=== PATIENT | female | born 1950 | race Caucasian/White ===

== ENCOUNTER 2017-10-12 06:56 | Day surgery (SDC) | payer OTHER ==
[2017-10-12] MEDS ORDERED: BENZOCAINE UNIT DOSE SPRAY HURRICAINE MM ONE (07:01)
[2017-10-12] MEDS ORDERED: ATROPINE SULFATE 1 MG/10 ML SYR IVP ONE (07:01)
[2017-10-12] MEDS ORDERED: NS 500 ML IV ONE (07:01)
--- NOTE | 2017-10-12 07:16 | CPEKG ---
Heart Rate: 121 RR Interval: 496 P-R Interval: 108 QRSD Interval: 126 QT Interval: 344 QTC Interval: 488 P Laurel: 80 QRS Laurel: -44 T Wave Laurel: -25 EKG Severity - ABNORMAL ECG - EKG Impression: SINUS TACHYCARDIA VS ATRIAL TACHYCARDIA EKG Impression: NONSPECIFIC IVCD WITH LAD EKG Impression: LEFT VENTRICULAR HYPERTROPHY Electronically Signed By: Asad Kim 12-Oct-2017 16:04:07
[2017-10-12 07:39] LABS: INR 1.67 (0.83-1.16); PROTIME(PATIENT) 19.8 SEC (12.0-15.0)
[2017-10-12] MEDS ORDERED: PROPOFOL 200 MG/20 ML VIAL ONE (08:30)
[2017-10-12] MEDS ORDERED: MIDAZOLAM 2 MG/2 ML VIAL ONE (08:31)
--- NOTE | 2017-10-12 08:37 | PDHPUP ---
History & Physical Update H&P update statement: This history and physical update is based on an assessment of the patient which was completed after admission or registration (within 24 hours), but prior to the surgery/procedure. H&P update: H&P reviewed & patient examined, no change in patient's condition since H&P completed
[2017-10-12] MEDS ORDERED: ADENOSINE 6 MG/2 ML VIAL ONE (08:41)
[2017-10-12] MEDS ORDERED: fentaNYL 100 MCG/2 ML INJ IVP PRN (08:59)
[2017-10-12] MEDS ORDERED: NALOXONE HCL 0.4 MG/ML INJ IVP PRN (08:59)
[2017-10-12] MEDS ORDERED: LR 500 ML IV PRN (08:59)
[2017-10-12] MEDS ORDERED: ALBUTEROL 3 ML DEYVIAL IH PRN (08:59)
[2017-10-12] MEDS ORDERED: ONDANSETRON 4 MG/2 ML VIAL IVP PRN (08:59)
--- NOTE | 2017-10-12 08:59 | PDANEPAE ---
ANE Past Medical History - Pulmonary History Hx Sleep Apnea: No - Endocrine History Hx Diabetes: No - Chronic Pain History Chronic Pain: No ANE Review of Systems Review of Systems: ANE Patient History - Allergies Allergies/Adverse Reactions: No Known Allergies Allergy (Unverified 09/20/14 14:11) - Home Medications Home Medications: Diltiazem 60 mg PO ONCE PRN 10/12/17 [Last Taken 10/10/17 21:30] Eliquis 5 mg PO BID 10/12/17 [Last Taken 10/12/17 05:00] Propafenone HCl 300 mg PO DAILY 10/12/17 [Last Taken 10/12/17 05:00] - Smoking Hx Smoking Status: Never smoked ANE Labs/Vital Signs - Labs Result Diagrams: 10/12/17 07:20 - Vital Signs Height: 170 cm Weight: 80.5 kg ANE Physical Exam - Airway Neck exam: FROM Mallampati Score: Class 2 Mouth exam: normal dental/mouth exam - Pulmonary Pulmonary: no respiratory distress, no rales or rhonchi, clear to auscultation - ASA Status ASA Status: III ANE Anesthesia Plan Anesthesia Plan: GA w LMA
[2017-10-12] MEDS ORDERED: ADENOSINE 6 MG/2 ML VIAL IVP ONE (09:00)
--- NOTE | 2017-10-12 09:00 | POSTANESTH ---
Post Anesthetic Evaluation Cardiovascular Status: Normal, Stable Respiratory Status: Normal, Stable, Similar to Pre-op Cond. Level of Consciousness/Mental Status: Can Participate in Eval Pain Control: Adequate, Prn Tx Ordered Nausea/Vomiting Control: Adequate, Prn Tx Ordered Complications Possibly Related to Anesthesia: None Noted
--- NOTE | 2017-10-12 09:03 | PDTEE1 ---
AUBREY Cardioversion Procedure Indications: other (Atrial flutter) Anticoagulation: eliquis Procedural Details: Pads were placed in anterior-posterior position. Patient was administered 12 mg of adenosine. Patient had significant AV block with clear atrial flutter. There was recovery. She was administered a single shock at 70 w seconds synchronized with faith of sinus rhythm. Synchronized cardioversion attempt #1: other (70J) Results: normal sinus rhythm Conclusions: successful cardioversion (Patient be referred to Dr. Spencer for consideration of atrial flutter ablation.) Patient Problems: Problems Problem Status Onset Arrhythmia Acute Atrial flutter Acute
--- NOTE | 2017-10-12 09:06 | CPEKG ---
Heart Rate: 76 RR Interval: 789 P-R Interval: 204 QRSD Interval: 104 QT Interval: 416 QTC Interval: 468 P [place]: 62 QRS [place]: -12 T Wave [place]: 33 EKG Severity - ABNORMAL ECG - EKG Impression: SINUS RHYTHM EKG Impression: PROBABLE LEFT VENTRICULAR HYPERTROPHY Electronically Signed By: Asad Kim 12-Oct-2017 15:55:37
[2017-10-12] MEDS ORDERED: LIDOCAINE/PRILOCAINE 1 EACH CRTUBE TP PRN (09:59)
[2017-10-12] MEDS ORDERED: LIDOCAINE/PRILOCAINE 1 EACH CRTUBE TP ONE (10:01)
== END 2017-10-12 10:27 | disposition home or self-care (01) ==
LOC: FCATH 06:56
PROVIDERS: ATTEND Internal Medicine Interventional Cardiology
PROC: 5A2204Z Restoration of Cardiac Rhythm, Single (ICD-10-PCS; principal; 2017-10-12)
DX: I48.91 Unspecified atrial fibrillation (principal); I48.3 Typical atrial flutter
CPT/HCPCS: J0153; J2250; J2704

== ENCOUNTER 2017-10-16 19:51 | Emergency (ER) | payer OTHER ==
[2017-10-16] MEDS ORDERED: NS 500 ML IV ONE (20:06)
--- NOTE | 2017-10-16 20:07 | EDPHY ---
H & P Time Seen by Provider: 10/16/17 20:06 HPI/ROS: CHIEF COMPLAINT: Rapid heart rate HISTORY OF PRESENT ILLNESS: The patient is an anticoagulated (Xarelto) 67 y/o female with a history of a flutter, a-fib, s/p cardiac ablation complaining of a rapid heart rate, onset 19 :20, 1 hour ago. On Wednesday, 4 days ago, she had a cardioversion preformed by Dr. Henriquez. She took 60mg PO Diltiazem, just prior to arrival but continues to have a rapid HR. No shortness of breath, dizziness, or chest pain. Followed by Dr. Henriquez and Dr. Spencer, rn clinician. REVIEW OF SYSTEMS: Aside from elements discussed in the HPI, a comprehensive 10-point review of systems was reviewed and is negative. Past Medical/Surgical History: A-flutter, a-fib, ablation, hypertension, hypercholesteremia, depression Social History: at bedside, lives in [place], retired Smoking Status: Never smoked Physical Exam: General Appearance: Alert, pleasant Eyes: Pupils equal and round, no conjunctival pallor or injection ENT, Mouth: Mucous membranes moist Neck: Normal inspection Respiratory: Lungs are clear to auscultation Cardiovascular: Regular tachycardia Gastrointestinal: Abdomen is soft and non-tender Neurological: A&O, nonfocal Skin: Warm and dry, no rash Extremities: Nontender, no pedal edema Psychiatric: Mood and affect normal Constitutional: Initial Vital Signs Temperature (C) 37.0 C 10/16/17 20:00 Heart Rate 143 H 10/16/17 20:00 Respiratory Rate 20 10/16/17 20:00 Blood Pressure 158/119 H 10/16/17 20:00 O2 Sat (%) 98 10/16/17 20:00 O2 Delivery Mode Room Air Allergies/Adverse Reactions: No Known Allergies Allergy (Unverified 10/16/17 20:00) Home Medications: Medication Instructions Recorded Apixaban [Eliquis] 5 mg PO BID 10/12/17 Diltiazem [Cardizem 60 MG (*)] 60 mg PO DAILY PRN 10/12/17 Medical Decision Making - Diagnostics EKG Interpretation: EKG interpreted by me reveals atrial flutter, ventricular rate 164, borderline left axis deviation, normal intervals, ST and T segments normal. Interpretation : abnormal EKG Imaging: I viewed and interpreted images myself ED Course/Re-evaluation: This patient presents with atrial flutter with RVR. She is hemodynamically stable. 2026: Consulted with Dr. Cintron, rn clinician, regarding this patient. He suggests diltiazem vs. cardioversion. 2029: Reassessed patient and discussed plan for cardioversion vs. diltiazem. She declines cardioversion and is requesting diltiazem. Patient will need to be admitted if she does not convert; she is comfortable with this plan. Diltiazem 10 mg IV ordered. 2109: Dr. Heck was consulted for admission. 2129: converted to NSR, will d/c home. Repeat EKG reveals normal sinus rhythm, without ischemic changes. No IV diltiazem given during her Emergency Department visit because she converted to normal sinus rhythm prior to giving IV diltiazem. Differential Diagnosis: Differential diagnosis includes though it is not limited to pneumonia, pneumothorax, pulmonary embolism, aortic dissection, pericarditis, acute coronary syndrome. - Data Points Laboratory Results: Laboratory Results 10/16/17 20:15 10/16/17 20:15 Medications Given: Discontinued Medications Diltiazem HCl (Cardizem 25 Mg/5 Ml Vial) 10 mg IVP EDNOW ONE Stop: 10/16/17 20:15 Last Admin: 10/17/17 01:15 Dose: Not Given Diltiazem HCl (Cardizem) 10 mg IV EDNOW ONE Stop: 10/16/17 20:46 Last Admin: 10/17/17 01:15 Dose: Not Given Sodium Chloride (Ns) 500 mls @ 0 mls/hr IV EDNOW ONE; Wide Open PRN Reason: Protocol Stop: 10/16/17 20:07 Last Admin: 10/16/17 21:29 Dose: 500 mls Diltiazem HCl 125 mg/ Dextrose 125 mls @ 0 mls/hr IV EDNOW ONE; As Directed PRN Reason: Protocol Stop: 10/16/17 20:15 Last Admin: 10/17/17 01:16 Dose: Not Given Departure - Departure Disposition: Home, Routine, Self-Care Clinical Impression: Atrial flutter Condition: Good Instructions: Atrial Flutter (ED) Additional Instructions: Follow up with your rn clinician in the next 3 days. Return to the Emergency Department if you experience worsening symptoms, chest pain, shortness of breath, fever, vomiting. Referrals: Jalil Spencer MD [Medical Doctor] - As per Instructions Hugo Henriquez MD [Medical Doctor] - As per Instructions Report Scribed for: Leigh Ann Rivera Report Scribed by: Sarah Melgar Date of Report: 10/16/17 Time of Report: 20:07 Physician Review and Approval Statement: 10/16/17 20:07 Portions of this note were transcribed by a manager of medical. I personally performed a history, physical exam, medical decision making, and confirmed accuracy of information the transcribed note.
--- NOTE | 2017-10-16 20:12 | CPEKG ---
Heart Rate: 164 RR Interval: 366 QRSD Interval: 74 QT Interval: 324 QTC Interval: 536 QRS Exchange: -16 T Wave Exchange: 268 EKG Severity - ABNORMAL ECG - EKG Impression: Atrial fib/flutter with RVR EKG Impression: BORDERLINE LEFT AXIS DEVIATION EKG Impression: REPOLARIZATION ABNORMALITY, PROB RATE RELATED Electronically Signed By: Leigh Ann Rivera 16-Oct-2017 21:22:29
[2017-10-16] MEDS ORDERED: DILTIAZEM 125 MG in D5W 125 ML IV ONE (20:14)
[2017-10-16] MEDS ORDERED: DILTIAZEM 25 MG/5 ML VIAL IVP ONE (20:14)
[2017-10-16 20:25] LABS: PLATELET COUNT 376 10^3/uL (150-400)
[2017-10-16] MEDS ORDERED: DILTIAZEM 50 MG/10 ML VIAL IV ONE (20:45)
--- NOTE | 2017-10-16 21:36 | CPEKG ---
Heart Rate: 96 RR Interval: 625 P-R Interval: 152 QRSD Interval: 82 QT Interval: 344 QTC Interval: 435 P Henning: 51 QRS Henning: -5 T Wave Henning: 22 EKG Severity - ABNORMAL ECG - EKG Impression: SINUS RHYTHM EKG Impression: LEFT VENTRICULAR HYPERTROPHY Electronically Signed By: Jalil Spencer 18-Oct-2017 07:51:16
[2017-10-16 22:00] VITALS: BP 130/73; PULSE 99; RESP 18; TEMP 99; O2SAT 98
== END 2017-10-16 22:01 | disposition home or self-care (01) ==
LOC: UNDOADMOB 21:15
DX: I48.92 Unspecified atrial flutter (principal); I10 Essential (primary) hypertension; E86.9 Volume depletion, unspecified; Z79.01 Long term (current) use of anticoagulants

== ENCOUNTER 2017-10-21 09:14 | Day surgery (SDC) | payer OTHER ==
[2017-10-21] MEDS ORDERED: ATROPINE SULFATE 1 MG/10 ML SYR IVP ONE (09:20)
[2017-10-21] MEDS ORDERED: NS 500 ML IV ONE (09:20)
--- NOTE | 2017-10-21 09:38 | CPEKG ---
Heart Rate: 93 RR Interval: 645 QRSD Interval: 94 QT Interval: 352 QTC Interval: 438 QRS [place]: 32 T Wave [place]: 49 EKG Severity - ABNORMAL ECG - EKG Impression: ATRIAL FIBRILLATION, V-RATE 62-109 EKG Impression: BORDERLINE ST ELEVATION, INFERIOR LEADS Electronically Signed By: Rolan Parham 21-Oct-2017 17:51:57
[2017-10-21 09:59] LABS: INR 1.99 (0.83-1.16); PROTIME(PATIENT) 22.7 SEC (12.0-15.0)
--- NOTE | 2017-10-21 10:52 | PDANEPAE ---
ANE Past Medical History - Pulmonary History Hx Oxygen in Use at Home: No Hx Sleep Apnea: No - Endocrine History Hx Diabetes: No - Chronic Pain History Chronic Pain: No ANE Review of Systems Review of Systems: ANE Patient History - Allergies Allergies/Adverse Reactions: No Known Allergies Allergy (Unverified 10/16/17 20:00) - Home Medications Home Medications: Apixaban [Eliquis] 5 mg PO BID 10/12/17 [Last Taken 10/21/17] Diltiazem HCl [Cartia XT 180mg] 10/21/17 [Last Taken 10/20/17] Omeprazole 20 mg PO 10/21/17 [Last Taken 10/20/17] Propafenone HCl [Propafenone HCl ER] BID 10/21/17 [Last Taken 10/21/17] - Smoking Hx Smoking Status: Never smoked ANE Labs/Vital Signs - Labs Result Diagrams: 10/21/17 09:40 ANE Physical Exam - Airway Neck exam: FROM Mallampati Score: Class 1 Mouth exam: normal dental/mouth exam - Pulmonary Pulmonary: no respiratory distress, no rales or rhonchi, clear to auscultation - Cardiovascular Cardiovascular: irregularly irregular - ASA Status ASA Status: III ANE Anesthesia Plan Anesthesia Plan: GA with mask
[2017-10-21] MEDS ORDERED: PROPOFOL 200 MG/20 ML VIAL ONE (10:53)
[2017-10-21] MEDS ORDERED: MIDAZOLAM 2 MG/2 ML VIAL ONE (10:53)
--- NOTE | 2017-10-21 11:09 | PDTEE1 ---
AUBREY Cardioversion Procedure Procedure: electrical cardioversion Indications: atrial fibrillation Consent: signed and in chart Anticoagulation: eliquis Procedural Details: No AUBREY performed. Synchronized cardioversion attempt #1: 200J Synchronized cardioversion attempt #2: 300J Results: normal sinus rhythm Conclusions: successful cardioversion Patient Problems: Problems Problem Status Onset Arrhythmia Acute
--- NOTE | 2017-10-21 11:17 | CPEKG ---
Heart Rate: 87 RR Interval: 690 P-R Interval: 164 QRSD Interval: 86 QT Interval: 380 QTC Interval: 457 P Manson: 59 QRS Manson: 14 T Wave Mans[place]: 42 EKG Severity - ABNORMAL ECG - EKG Impression: SINUS RHYTHM EKG Impression: PROBABLE LEFT ATRIAL ABNORMALITY EKG Impression: ST ELEVATION SUGGESTS PERICARDITIS Electronically Signed By: Rolan Parham 21-Oct-2017 17:51:43
== END 2017-10-21 13:17 | disposition home or self-care (01) ==
LOC: FCATH 09:14
PROVIDERS: ATTEND Internal Medicine Interventional Cardiology
PROC: 5A2204Z Restoration of Cardiac Rhythm, Single (ICD-10-PCS; principal; 2017-10-21)
DX: I48.0 Paroxysmal atrial fibrillation (principal); I48.92 Unspecified atrial flutter; Q21.1 Atrial septal defect; I10 Essential (primary) hypertension
CPT/HCPCS: J2250; J2704

== ENCOUNTER → 2017-10-25 | Outpatient (CLI) | payer OTHER ==
[~2017-10-25] MED LIST: IOPAMIDOL (ISOVUE 370) 100 ML BTL IV ONE
== END ==
LOC: FIMAGING 14:41
PROVIDERS: ATTEND Internal Medicine Cardiovascular Disease
DX: I48.91 Unspecified atrial fibrillation (principal); J90 Pleural effusion, not elsewhere classified; I51.7 Cardiomegaly
CPT/HCPCS: 75572; Q9967

== ENCOUNTER → 2017-10-26 | Outpatient (CLI) | payer OTHER | LOC: BHFA 10:00 | PROVIDERS: ATTEND Internal Medicine Cardiovascular Disease | DX: I31.3 Pericardial effusion (noninflammatory) (principal) ==

== ENCOUNTER 2017-11-03 09:03 | Inpatient (IN) | payer OTHER ==
--- NOTE | 2017-11-03 09:11 | EDPHY ---
HPI/HX/ROS/PE/MDM Narrative: CHIEF COMPLAINT: Heart pressure HPI: The patient is an anticoagulated (Xarelto) 67 y/o female with a history of atrial flutter and atrial fibrillation s/p cardiac ablation complaining of left- sided chest pressure. She was evaluated 10/16 in this emergency department for atrial flutter, but was discharged after spontaneously converting back to sinus rhythm without intervention. The patient has followed up with her data processing supervisor, Dr. Spencer, several times since then and underwent electrical cardioversion . Last week Wednesday, she had a CT subsequent echocardiogram on Wednesday which showed a pericardial effusion. For the last two days, she has felt like she has more "pressure on her heart", which presents as a left-sided chest pressure. She has increased discomfort with cough or deep inspiration. She has continued to be in atrial flutter for the last several days. She was scheduled for ablation, but this was postponed due to the pericardial effusion. No fever, difficulty breathing, vomiting, abdominal pain, or other associated symptoms. REVIEW OF SYSTEMS: Aside from elements discussed in the HPI, a comprehensive 10-point review of systems was reviewed and is negative. PMH: Atrial flutter s/p ablation, Atrial fibrillation, Hypertension, Hyperlipidemia, Depression. SOCIAL HISTORY: . at bedside. Retired. PHYSICAL EXAM: General:Patient is alert, in no acute distress. ENT:Eyes are normal to inspection. ENT inspection normal. Neck: Normal inspection. Full range of motion. Respiratory:No respiratory distress. Breath sounds normal bilaterally. Cardiovascular: Irregularly irregular tachycardia. Strong peripheral pulses. Normal cap refill. Abdomen:The abdomen is nontender to palpation. There are no peritoneal signs. There are normal bowel sounds. Back: Normal to inspection. No tenderness to palpation. Skin: Normal color. No rash. Warm and dry. Extremities: Normal appearance. Full range of motion. Neuro: Oriented x3. Normal motor function. Normal sensory function. ED Course: 67 y/o female with history of atrial flutter and atrial fibrillation presents with left-sided chest pressure. Plan for EKG, chest x-ray, labs including CBC, chemistries, Troponin. Troponin negative. WBC elevated at 14,000. 10:05 Spoke with [Kuldip], data processing supervisor. He will review the patient's records and then consult. X-ray shows left lower lobe effusion. Plan for CTA chest for further evaluation. 11:[address] Lew, radiologist. CT shows worsening pleural effusion and moderate pericardial effusion. 11:40 Spoke with hospitalist service. Dr. Camp accepts admission to PCU for pleural and pericardial effusions. 11:49 Spoke with echocardiogram composite bond technician. Still has small pericardial effusion which has not worsened. She has a new larger pleural effusion. MDM: This patient presents with left sided chest pain and is found to have significantly enlarged pleural effusion vs a week ago, as well as continued pericardial effusion, both of unknown etiology. I see no signs of ACS, PE, TAD or tamponade. She requires admission for further workup and close monitoring. - Data Points Imaging Results: Imaging Impressions Chest X-Ray 11/03/17 09:11 Impression: 1, Left lower lobe and lingular pneumonia with effusion. 2. Difficult to exclude underlying CHF or fluid overloading. Chest/Thorax CTA 11/03/17 10:00 Impression: 1. No evidence of thrombopulmonary embolic disease. 2. Increasing large left pleural effusion with atelectasis left lower lobe. Mild atelectasis posteriorly left upper lobe. 3. Moderate pericardial effusion. Results called and discussed with Dr. Prabhjot Chaparro on November 03, 2017 at 1115 hours. Imaging: Discussed imaging studies w/ bingo caller Radiologist, I viewed and interpreted images myself Laboratory Results: Laboratory Results 11/03/17 09:10 11/03/17 09:10 11/03/17 11/03/17 09:10 09:10 WBC 14.17 10^3/uL H 10^3/uL (3.80-9.50) RBC 4.19 10^6/uL 10^6/uL (4.18-5.33) Hgb 11.6 g/dL L g/dL (12.6-16.3) Hct 34.7 % L % (38.0-47.0) MCV 82.8 fL fL (81.5-99.8) MCH 27.7 pg L pg (27.9-34.1) MCHC 33.4 g/dL g/dL (32.4-36.7) RDW 14.2 % % (11.5-15.2) Plt Count 869 10^3/uL H 10^3/uL (150-400) MPV 8.6 fL L fL (8.7-11.7) Neut % (Auto) 77.4 % H % (39.3-74.2) Lymph % (Auto) 8.8 % L % (15.0-45.0) Morton % (Auto) 11.7 % % (4.5-13.0) Eos % (Auto) 0.7 % % (0.6-7.6) Baso % (Auto) 0.7 % % (0.3-1.7) Nucleat RBC Rel Count 0.0 % % (0.0-0.2) Absolute Neuts (auto) 10.97 10^3/uL H 10^3/uL (1.70-6.50) Absolute Lymphs (auto) 1.24 10^3/uL 10^3/uL (1.00-3.00) Absolute Monos (auto) 1.66 10^3/uL H 10^3/uL (0.30-0.80) Absolute Eos (auto) 0.10 10^3/uL 10^3/uL (0.03-0.40) Absolute Basos (auto) 0.10 10^3/uL 10^3/uL (0.02-0.10) Absolute Nucleated RBC 0.00 10^3/uL 10^3/uL (0-0.01) Immature Gran % 0.7 % % (0.0-1.1) Immature Gran # 0.10 10^3/uL 10^3/uL (0.00-0.10) Platelet Estimate INCREASED H (ADEQ) Sodium 130 mEq/L L mEq/L (135-145) Potassium 3.7 mEq/L mEq/L (3.5-5.2) Chloride 95 mEq/L L mEq/L (97-110) Carbon Dioxide 24 mEq/l mEq/l (22-31) Anion Gap 11 mEq/L mEq/L (8-16) BUN 14 mg/dL mg/dL (7-23) Creatinine 0.8 mg/dL mg/dL (0.6-1.0) Estimated GFR > 60 Glucose 111 mg/dL H mg/dL (70-100) Calcium 9.3 mg/dL mg/dL (8.5-10.4) Troponin I < 0.012 ng/mL ng/mL (0.000-0.034) General Time Seen by Provider: 11/03/17 09:10 Initial Vital Signs: Initial Vital Signs Temperature (C) 37.1 C 11/03/17 09:06 Heart Rate 121 H 11/03/17 09:06 Respiratory Rate 18 11/03/17 09:06 Blood Pressure 113/63 11/03/17 09:06 O2 Sat (%) 95 11/03/17 09:06 O2 Delivery Mode Room Air Allergies/Adverse Reactions: NSAIDS (Non-Steroidal Anti-Inflamma Allergy (Verified 11/03/17 12:29) GI Bleeding Home Medications: Medication Instructions Recorded Apixaban [Eliquis] 5 mg PO BID 10/12/17 Diltiazem HCl [Cartia XT 180mg] 180 mg PO HS 10/21/17 Omeprazole 20 mg PO HS 10/21/17 Herbals/Supplements -Info Only 1 ea PO DAILY 10/25/17 Cholecalciferol Vit D3 [Vitamin D3 1,000 units PO DAILY 11/03/17 (*)] Propafenone HCl Sr [Rythmol Sr 325 mg PO BID 11/03/17 325mg (*)] Departure - Departure Disposition: [facility] Acute Clinical Impression: Pleural effusion, Pericardial effusion Condition: Fair Report Scribed for: Prabhjot Chaparro Report Scribed by: Yaquelin Kay Date of Report: 11/03/17 Time of Report: 09:21 Physician Review and Approval Statement: Portions of this note were transcribed by an ED scribe. I personally performed the history, physical exam, and medical decision making; and confirm the accuracy of the information in the transcribed note.
--- NOTE | 2017-11-03 09:14 | CPEKG ---
Heart Rate: 109 RR Interval: 550 QRSD Interval: 86 QT Interval: 320 QTC Interval: 431 QRS [place]: 5 T Wave [place]: 63 EKG Severity - ABNORMAL ECG - EKG Impression: ATRIAL FIBRILLATION, V-RATE 74-138 EKG Impression: BORDERLINE T WAVE ABNORMALITIES Electronically Signed By: Prabhjot Chaparro 03-Nov-2017 15:07:11
[2017-11-03 09:26] LABS: PLATELET COUNT 869 10^3/uL (150-400)
[2017-11-03] MEDS ORDERED: IOPAMIDOL (ISOVUE 370) 100 ML BTL IV ONE (10:17)
--- NOTE | 2017-11-03 12:24 | ECHO ---
[email or web address] [address] Main: [phone] Fax: [email or web address] Echocardiogram Name: AIDA BARRETT MR#: [id number] Study Date: 11/03/2017 Study Time: 11:55 AM Date of : 1950 Age: 67 year(s) Height: 170.2 cm (67 in.) Weight: 79.38 kg (175 lb.) BSA: 1.91 m2 Gender: Female Examination: Limited Echo Indication: Shortness of breath, Known Effusion from echocardiogram 10/26/17 Image Quality: Contrast: Requested by: Prabhjot Chaparro BP: / Heart Rate: Rhythm: Atrial flutter Indication: Shortness of breath, Known Effusion from echocardiogram 10/26/17 Procedure Staff Pipe Fitter Helper: Tremayne Black RDCS Reading Physician: Fidencio Christiansen MD Requesting Provider: Measurements: Chambers Valvular Assessment AV/MV Valvular Assessment TV/PV Normal Normal Normal Name Value Range Name Value Range Name Value Range IVSd (2D): 0.9 cm (0.6 cm-1.1 TR Vmax: 2.54 mm/s ( - ) cm) TR PGmax: 26 mmHg ( - ) LVDd (2D): 3.3 cm (3.9 cm-5.3 syst. PAP: 31 mmHg ( - ) cm) LVDs (2D): 2.4 cm (2.1 cm-4 cm) LVPWd (2D): 1.2 cm ( - ) LVEF (2D): 56 (>=54 %) Continued Measurements: Valvular Assessment TV/PV Name Value CVP (est.): 5 mmHg Findings: Exam Comments: The rhythm is atrial fibrillation/flutter, the EF is low normal estimated at 50-55% in atrial flutter/fibrillation. There is a known, small pericardial effusion with no evidence of tamponade. There is now a new large pleural effusion. Compared to the previous exam of 10/26/17 there is now a large pleural effusion.. Patient: AIDA BARRETT Study Date: 11/03/2017 Page 1 of 2 11:55 AM (No Signature Object) Patient: AIDA BARRETT Study Date: 11/03/2017 Page 2 of 2 11:55 AM [id number]
[2017-11-03] MEDS ORDERED: ONDANSETRON 4 MG/2 ML VIAL IVP PRN (14:17)
[2017-11-03] MEDS ORDERED: ONDANSETRON DISINTEGRATING 4 MG TAB PO PRN (14:17)
--- NOTE | 2017-11-03 14:50 | GHP ---
[f rep st] HISTORY AND PHYSICAL DATE OF ADMISSION: 11/03/2017 The patient is a pleasant 67-year-old female with history of atrial fibrillation/flutter that is recu rrent. She had a remote ablation and she has had recurrent symptoms over the last few months. She w as actually scheduled for an ablation earlier in the week with Dr. Jalil Spencer, however, she was noted to have a pericardial effusion and thus the procedure was canceled. She presented to the emergency department today with increased work of breathing. She has not had fever, chills. She has had a dry cough with no sputum. She has had orthopnea without lower extremity edema. She does not have a per jojo or family history of rheumatologic illness and she had no rash on her skin or swelling of her j oints. She does not have tuberculosis risk factor. She has done breast self-exams, but is not up to date on mammogram. She has not had unexplained weight loss. REVIEW OF SYSTEMS: Complete 10-point review of systems conducted and negative except as noted in the HPI. PAST MEDICAL HISTORY: 1. Atrial fibrillation/flutter as in the HPI. 2. Hypertension. ALLERGIES: NSAIDs. MEDICATIONS: Propafenone, diltiazem, vitamin D3, omeprazole, and apixaban. Her last dose of apixaba n was this morning, 11/03/2017. SOCIAL HISTORY: Occasional alcohol. No tobacco. Lives in [place]. Retired. FAMILY HISTORY: Negative for rheumatologic illnesses. PHYSICAL EXAMINATION: VITAL SIGNS: Temp 37.0, blood pressure 116/90, pulse 103, breathing 18 times a minute, 90% on room air. GENERAL: No acute distress. Appears younger than her stated age. HEENT: Sclerae anicteric. Oropharynx clear. Mucous membranes moist. NECK: Supple without lymphadenopat hy or JVD. LUNGS: Show decreased breath sounds about alf up the lung field with crackles above that. The right lung is clear. There is good air movement. HEART: S1, S2. Irregularly irregular. ABDOMEN: Soft, nontender, nondistended. LOWER EXTREMITIES: Without edema, calves are nontender. S KIN: Without rash. NEUROLOGIC: Grossly nonfocal. LABS: White count 14.2 which is high for her. Hematocrit 34.7, which is low for her MCV. Platelets are elevated at 869. INR is 1.99 two weeks ago. Sodium 130, potassium 3.7, chloride 95, bicarb 24, BUN 14, creatinine 0.8, glucose 111. Troponin less than 0.012. Recent TSH is 3.2, ferritin was 63. 8. Chest x-ray, interpreted by me shows large left pleural effusion taking up about half of the left hem ithorax. There is no right effusion. There is no pneumonia. There is compressive atelectasis. CTA of the chest shows no pulmonary embolism. Large left pleural effusion, atelectasis in the lower lobe. Moderate pericardial effusion. EKG interpreted by me shows atrial fibrillation at 109 with normal axis and intervals. There are kellie e flutter waves in the inferior leads. There are no ST or T-wave changes. I discussed the case with Moy Mark in Cardiology REPAIR DEPARTMENT MANAGER. ASSESSMENT/PLAN: 67-year-old female with recurrent atrial fibrillation, presents with symptomatic le ft pleural effusion. 1. Pleural effusion. The etiology of this is uncertain. The patient does not have an obvious diagn osis such as pneumonia or cancer to prompt this. It is not clear to me that this represents heart fa ilure. Thoracentesis with appropriate studies including cell count, Gram stain, LDH, etc., has been ordered for tomorrow. I will also add on cytology. I sent inflammatory markers as well as a ferritin . Her recent thyroid function is normal. 2. Will have to wait until tomorrow given that she took her Eliquis today. I believe it will be saf e to do that tomorrow. Notably, she had a cessation in her Eliquis therapy earlier in the week given her upcoming ablation. 3. Atrial flutter/atrial fibrillation. The patient is moderately rate controlled. I will continue her diltiazem and propafenone. 4. Query heart failure. The patient had an echocardiogram performed today showing diastolic dysfunc tion alone. It is not clear to me that this represents an effusion secondary to heart failure. 5. Pericardial effusion. The patient does not have evidence of tamponade either clinically or on ec hocardiogram. 6. Prophylaxis sequential compression devices. Resumption of anticoagulation when procedures have b een done. /[id number]/MODL
[2017-11-03 15:17] LABS: INR 2.34 (0.83-1.16); PROTIME(PATIENT) 25.6 SEC (12.0-15.0)
--- NOTE | 2017-11-03 17:14 | PDMN ---
Medical Necessity Medical necessity: est los>2mn for pleural effusion of uncertain etiology and possible heart failure; requires thoracentesis 11/04; comorbid afib on Eliquis which was taken today; hx htn; per order and H&P 11/03/17
[2017-11-03] MEDS ORDERED: NON-FORMULARY NEW DRUG (Omeprazole [Omeprazole] 20 MG) PO SCH (21:00)
[2017-11-03] MEDS ORDERED: NON-FORMULARY NEW DRUG (Diltiazem Hcl [Cartia Xt 180mg] 180 MG) PO SCH (21:00)
[2017-11-03] MEDS: ACETAMINOPHEN 325 MG TAB PO PRN (21:19)
[2017-11-03] MEDS: DILTIAZEM CD 180 MG CAP PO SCH (21:19)
[2017-11-03] MEDS: PANTOPRAZOLE SODIUM 40 MG TAB PO SCH (21:21)
[2017-11-03] MEDS: PROPAFENONE HCL SR 325 MG CAP PO SCH (21:21)
[2017-11-04 08:26] LABS: INR 1.98 (0.83-1.16); PROTIME(PATIENT) 22.6 SEC (12.0-15.0)
[2017-11-04] MEDS ORDERED: Herbals/Supplements -Info Only PO SCH (09:00)
[2017-11-04] MEDS: CHOLECALCIFEROL VIT D3 1,000 UNITS TAB PO SCH (09:01)
[2017-11-04] MEDS: PROPAFENONE HCL SR 325 MG CAP PO SCH ×2 (09:01→20:37)
--- NOTE | 2017-11-04 09:13 | GCON ---
[f rep st] CONSULTATION CARDIOLOGY CONSULTATION INDICATION FOR CARDIOLOGY CONSULTATION: Atrial fibrillation, known mild pericardial effusion, and ongoing chest pressure. HISTORY OF PRESENT ILLNESS: The patient is a 67-year-old female who is known to our practice. She has significant past history that includes paroxysmal atrial fibrillation with previous ablation done multiple years ago at [facility]. She has recently been seen by Dr. Spencer for repeated episodes of atrial tachycardia. In which she has required 2 cardioversions since August 29. It was found on CT scan in preparation for an electrophysiology procedure of having a mild pericardial effusion. She had recently been in our office, in which she had underwent a limited echocardiogram , which showed a small moderate pericardial effusion. The patient informs me that all her episodes of palpitations, atrial tachycardia, were followed by the recent episode of what she describes as flu-like symptoms in which she was hospitalized in [place], [place] in August, requiring a cardioversion for atrial tachycardia. She reports she has not been feeling well ever since that time, and has had multiple episodes of palpitations, in which she, as mentioned above, has had to have 2 cardioversions for atrial tachycardia. She informs me today, that about 12 hours ago, she started to have some increased shortness of breath, and started having some anterior chest pressure, especially when lying flat or sitting up. She reports the only position that she has felt comfortable is sitting forward. She also has noticed that it has been more increasingly difficult to breathe. Besides the symptoms back in August, she reports she has had no recent symptoms of fevers, chills, or night sweats. She does have a dry nonproductive cough, but no other symptoms. She denies of any bleeding issues, currently on full anticoagulation with Eliquis. She denies of any lightheadedness, near-syncope, or syncopal events. She did call our office this morning to report her symptoms with recommendation to come into the emergency department. Upon arrival, initial EKG did show that she was back in atrial fibrillation with ventricular rate at 109 BPM. Chest x-ray did show a left lower lobe lingular pneumonia with effusion; it was difficult to exclude congestive heart failure. Laboratory studies showed a negative troponin level, but with her symptoms, she did undergo CTA of the chest showing no evidence of thrombopulmonary embolic disease with an increased large left pleural effusion with atelectasis of the left lower lobe , mild atelectasis of the posterior left upper lobe, and was also noted to have moderate pericardial effusion. Repeat echocardiogram done showing EF normal low at 50% to 55%, but in comparison to previous echocardiogram on 10/26/2017, a small pericardial effusion was noted that did not show that it had increased in size. PAST MEDICAL HISTORY: Includes atrial fibrillation, atrial flutter, and atrial tachycardia. She also has noted history of hypertension, PFO, DANICA. PAST SURGICAL HISTORY: Includes previous ablation for atrial flutter done at [facility]. FAMILY HISTORY: The patient does report positive for coronary artery disease, but all above the age of 60. SOCIAL HISTORY: The patient is . She has 1 adult son who is alive and well. She is retired. She reports never smoking. She reports occasional social drinking, but less than once or twice a month. ALLERGIES: NSAIDs, reporting history of GI bleeding. HOME MEDICATIONS: Include propafenone 325 mg p.o. b.i.d. Omeprazole 20 mg p.o. h.s., herbs and supplements, diltiazem 180 mg p.o. h.s., vitamin D 1000 units p.o. daily, and Eliquis 5 mg p.o. b.i.d. REVIEW OF SYSTEMS: A 10-point review of systems done on patient all negative, except as mentioned above. PHYSICAL EXAMINATION: GENERAL APPEARANCE: Medium built, well-groomed female. She currently appears in no acute distress. VITAL SIGNS: Current, blood pressure 115/68, heart rate 110, atrial fibrillation on the monitor, respirations 16, saturating 91% on room air, temperature of 37.4 degrees Celsius. HEENT: Head is normocephalic. Lips and tongue are pink and moist with no signs of cyanosis. Conjunctivae pink. NECK: Trachea is midline, no JVD, no carotid bruits noted, +2 carotid pulses bilateral. LUNGS: Diminished lung sounds in left lower lobe, no significant rhonchi or rales noted. No accessory muscle use, no intercostal muscle retraction noted. HEART: Irregular rhythm, regular rate. S1-S2; no S3, S4, gallops, rubs, or murmurs noted. ABDOMEN: Soft, nontender, bowel sounds x4 quadrants, no organomegaly, no palpable masses. SKIN : [place], warm, dry, no cyanosis, no clubbing, no peripheral edema. Patient denies any rashes. VASCULAR: +2 carotids bilateral, +2 radials bilateral, +1 dorsal pedal and posterior tibial pulses bilateral. LABORATORY STUDIES: WBC of 14.17, hemoglobin of 11.6, hematocrit of 34.7, platelet count 869. ESR of 52. INR of 2.34. Sodium of 130, potassium 3.7, chloride 95, CO2 24, BUN 14, creatinine 0.8, glucose 111, calcium 9.3, lactate dehydrogenase 666, troponin less than 0.012. C-reactive protein 169.7, proBNP 2160. Rheumatoid factor semiquantitative 9.8. HANY screening pending. STUDIES: Electrocardiogram as mentioned above. Chest x-ray as mentioned above. Chest CTA as mentioned above. Echocardiogram as mentioned above. ASSESSMENT AND PLAN: 1. Pleural effusion: New onset since previous echocardiogram. Significant. Etiology is uncertain. I have discussed this with Dr. Camp of Hospital Services; will hold the patient's anticoagulation at this time and plan for her to undergo thoracentesis tomorrow in which culture and Gram staining will be done on sample. 2. Paroxysmal atrial fibrillation: Patient currently in atrial fibrillation, appears to be fairly well rate controlled, continue on home doses of propafenone and diltiazem. Patient has been noted to convert spontaneous at times. Anticoagulation has been held due to as mentioned above. 3. Elevated brain natriuretic peptide: Echocardiogram today showing normal left ventricular systolic function. There is a degree of diastolic dysfunction. Questioning possible heart failure as potential motive for pleural effusion, but clinically she does not appear to be in any significant failure. Re-evaluate after thoracentesis tomorrow. 4. Pericardial effusion: Recently noted off a CT scan. Repeated echocardiogram today shows no significant growth from previous viewing October 26. The patient noted to have elevated factors, C-reactive protein, and sedimentation rate. Questioning some type of inflammatory process. She does not clinically appear to be in tamponade. Will re-evaluate with consideration of starting her on colchicine. 5. Hypertension: Blood pressure appears to be well controlled at this time, we will continue to monitor. Thank you for this consultation. We will be glad to follow along with you. /[id number]/MODL MTDD
[2017-11-04] MEDS ORDERED: LIDOCAINE 1% 300 MG/30 ML SDV ONE (10:12)
--- NOTE | 2017-11-04 11:02 | HOSPPROG ---
Hospitalist Progress Note Assessment/Plan: 67 yo F aflutter w large L pleural effusion pleural effusion: thoracentesis today w cytology elevated peripheral inflammatory markers make CHF less likely normal TSH aflutter: rate improved continue dilt and propafenone ahrf: 2/2 large L pleural effusion proph: anup hurtado 11/05 dispo: inpt Subjective: case d/ rosy normastcaden, cardiology INFECTION PREVENTION COORDINATOR Objective: Vital Signs Temp Pulse Resp BP Pulse Ox 37.3 C 92 24 H 118/62 96 11/04/17 08:22 11/04/17 08:22 11/04/17 08:22 11/04/17 08:22 11/04/17 08:22 Laboratory Results 11/04/17 06:30 11/04/17 04:02 11/03/17 11/04/17 11/05/17 05:59 05:59 05:59 Intake Total 880 Output Total 350 Balance 530 PT 22.6 SEC (12.0-15.0) H 11/04/17 06:30 INR 1.98 (0.83-1.16) H 11/04/17 06:30 - Physical Exam Constitutional: no apparent distress, appears nourished Eyes: PERRL, anicteric sclera Ears, Nose, Mouth, Throat: moist mucous membranes, hearing normal Cardiovascular: regular rate and rhythym, no murmur, rub, or gallop Respiratory: no respiratory distress, other (decreased breath sounds on L) Gastrointestinal: normoactive bowel sounds, soft, non-tender abdomen Genitourinary: No perdomo in urethra Skin: warm, normal color Musculoskeletal: full muscle strength, no muscle tenderness Neurologic: AAOx3, sensation intact bilaterally Psychiatric: interacting appropriately Lymph, Heme, Immunologic: no cervical LAD ICD10 Worksheet Patient Problems: Problems Problem Status Onset Pericardial effusion Acute Pleural effusion Acute Arrhythmia Acute
--- NOTE | 2017-11-04 11:42 | ASMTCASEMG ---
Living Arrangements What is your living Answers: With Spouse arrangement? Who do you live with? Type Of Residence What kind of residence do Answers: House you live in? Discharge Plan Comments Coordination Status Comments Notes: Pt is a 67 y/o female admitted for pericardial and pleural effusions. Pt will most likely d/c independent when medically stable. No therapies ordered at this time. CM available for changes. Plan: Independent Date Signed: 11/04/2017 11:41 AM Electronically Signed By:ARYAN Park
--- NOTE | 2017-11-04 14:30 | PDCARPN ---
Cardiology Progress Note Chief Complaint: Shortness of breath has improved status post thoracentesis. Assessment/Plan: Assessment: 67-year-old female significant history that includes paroxysmal atrial fibrillation/atrial flutter, with previous ablation done multiple years ago at [facility], recent recurring episodes of atrial tachycardia, atrial flutter , which has required 2 cardioversion since August 29. She has had a recent CT scan done in preparation for electrophysiology procedure , which noted mild pericardial effusion. Has been monitor with limited echocardiogram done at our office on 10/26 showing a small pericardial effusion which had not noted to be increase in size. Admitted on 11/03 for increased shortness of breath. Found to be in atrial fibrillation. On CT scan showing no PEs which was negative for PE, but noted increased large pleural effusion with atelectasis in left lower lobe. Full echocardiogram study done on 11/03 showing EF low normal between 50-55%, no wall motion abnormality, small pericardial effusion with no evidence of tamponade. Noted large left pleural effusion. ESR was 52, C reactive protein 169.7, proBNP 2160 Today: Patient underwent thoracentesis with 800 mL of serosanguineous fluid evacuation. Initial studies showing pleural effusion of pH is 7.4, WBCs 9433, RBCs 59461, neutrophils 73, eosinophils 3, total protien 3.8, LDH 1185, glucose. The rest of cytology pending. Patient reports since procedure shortness of breath has improved. Continues to have positional chest pressure, but improved from yesterday. She remains in atrial fibrillation, with rates varying between 80-110. Plan: 1. Pleural effusion: Thoracentesis done today, improvement in symptoms. Cytology pending. 2. Atrial fibrillation: Patient continues to be in AFib, rate well controlled on current medication regime. Have spoken to Dr. Spencer, patient's dish up person. Per his recommendation, no change in current dosage of diltiazem or propafenone. Her Eliquis has been on hold, for thoracentesis. Will plan on restarting it tomorrow. 3. Elevated BNP: Patient with pleural effusion and mild pericardial effusion, systemic inflammatory markers elevated, less likely due to CHF 4. Pericardial effusion: Recent echocardiogram showing no significant change since . Continue to monitor. No signs of tamponade. 5. Hypertension: Blood pressure well controlled on current medication regime, no changes at this time. 11/04/17 14:28 Subjective: Patient reports continue having positional chest pressure, worse when lying flat. Shortness of breath has improved since thoracentesis. Denies of any palpitations, lightheadedness, near-syncope or syncopal events. Reviewed/Discussed With: hospitalist (Dr Camp), other (Dr Henriquez and Dr Spencer) Objective: Vital Signs (8 Hrs) Temp Pulse Resp BP Pulse Ox 11/04/17 12:00 36.7 C 105 H 18 117/54 L 96 11/04/17 08:22 37.3 C 92 24 H 118/62 96 Intake/Output (24 Hrs) 11/03/17 11/04/17 11/05/17 05:59 05:59 05:59 Intake Total 880 Output Total 350 Balance 530 Intake: Oral (ml) 880 Output: Urine (ml) 350 Toilet 350 Other: Weight 80.1 kg Number of Voids Toilet 1 Result Diagrams: 11/04/17 06:30 11/04/17 04:02 - Physical Exam Constitutional: no apparent distress Ears, Nose, Mouth, Throat: moist mucous membranes Cardiovascular: no rubs, no gallops, irregularly irregular (AFib on monitors.), pulses symmetric bilat, No jugular vein distention, No carotid bruit Peripheral Pulses: 2+: carotid (R), carotid (L), dorsalis-pedis (R), dorsalis- pedis (L) Respiratory: other (Diminished in left lower lobe. No rhonchi or rales noted. No accessary muscle use, no intercostal muscle retraction noted.) Gastrointestinal: normoactive bowel sounds Skin: no rashes, warm, no edema Neurologic: AAOx3 Psychiatric: cooperative, interactive, following commands ICD10 Worksheet Patient Problems: Problems Problem Status Onset Pleural effusion Acute Pericardial effusion Acute Arrhythmia Acute
[2017-11-04] MEDS: ACETAMINOPHEN 325 MG TAB PO PRN (20:37)
[2017-11-04] MEDS: PANTOPRAZOLE SODIUM 40 MG TAB PO SCH (20:38)
[2017-11-04] MEDS: DILTIAZEM CD 180 MG CAP PO SCH (20:38)
[2017-11-05] MEDS: PROPAFENONE HCL SR 325 MG CAP PO SCH ×2 (08:00→20:41)
[2017-11-05] MEDS: CHOLECALCIFEROL VIT D3 1,000 UNITS TAB PO SCH (08:00)
[2017-11-05] MEDS ORDERED: LIDOCAINE 1% 300 MG/30 ML SDV ONE (08:14)
[2017-11-05] MEDS: ACETAMINOPHEN 325 MG TAB PO PRN (10:57)
[2017-11-05] MEDS: oxyCODONE IR 5 MG TAB PO PRN ×2 (11:47→20:44)
--- NOTE | 2017-11-05 12:49 | HOSPPROG ---
Hospitalist Progress Note Assessment/Plan: 67 yo F aflutter w large L pleural effusion pleural effusion: thoracentesis today w cytology elevated peripheral inflammatory markers make CHF less likely normal TSH aflutter: rate improved continue dilt and propafenone ahrf: 2/2 large L pleural effusion proph: resume eliquis 11/05 dispo: inpt Subjective: case d/w dr downs. cxr w decreased pleural fluid, no pnx ( interp by me) Objective: Vital Signs Temp Pulse Resp BP Pulse Ox 36.4 C 100 14 115/65 97 11/05/17 10:49 11/05/17 10:49 11/05/17 10:49 11/05/17 10:49 11/05/17 10:49 Microbiology 11/04/17 12:00 Gram Stain - Final Thoracic Fluid - Aspirate Laboratory Results 11/04/17 06:30 11/04/17 04:02 11/04/17 11/05/17 11/06/17 05:59 05:59 05:59 Intake Total 880 900 Output Total 350 Balance 530 900 PT 22.6 SEC (12.0-15.0) H 11/04/17 06:30 INR 1.98 (0.83-1.16) H 11/04/17 06:30 ICD10 Worksheet Patient Problems: Problems Problem Status Onset Pericardial effusion Acute Pleural effusion Acute Arrhythmia Acute
[2017-11-05] MEDS: predniSONE 20 MG TAB PO SCH (13:12)
--- NOTE | 2017-11-05 14:12 | PDCARPN ---
Cardiology Progress Note Chief Complaint: Patient reports increased pain with cough at thoracentesis site. SOB has mildly improved. Assessment/Plan: Assessment: 67-year-old female significant history that includes paroxysmal atrial fibrillation/atrial flutter, with previous ablation done multiple years ago at [facility], recent recurring episodes of atrial tachycardia, atrial flutter , which has required 2 cardioversion since August 29. She has had a recent CT scan done in preparation for electrophysiology procedure , which noted mild pericardial effusion. Has been monitor with limited echocardiogram done at our office on 10/26 showing a small pericardial effusion which had not noted to be increase in size. Admitted on 11/03 for increased shortness of breath. Found to be in atrial fibrillation. On CT scan showing no PEs which was negative for PE, but noted increased large pleural effusion with atelectasis in left lower lobe. Full echocardiogram study done on 11/03 showing EF low normal between 50-55%, no wall motion abnormality, small pericardial effusion with no evidence of tamponade. Noted large left pleural effusion. ESR was 52, C reactive protein 169.7, proBNP 2160 Today, patient remains in atrial flutter comma heart rate remains well rate controlled. She reports continued to have pain with deep inspiration, better relief of pain with oxycodone. Cytology is still pending. The patient had mammograms done yesterday, which were negative. She appears fairly euvolemic. Repeated chest x-ray today showing no pneumothorax, small residual left pleural effusion, persistent left lower lobe atelectasis. Plan: 1. Pleural effusion: Thoracentesis done yesterday. Cytology pending. Started on prednisone, plan on following up with rheumatology. 2. Atrial fibrillation: Patient continues to be in AFib, rate well controlled on current medication regime. Have spoken to Dr. Spencer, patient's sewing machine operator paper bags. Per his recommendation, no change in current dosage of diltiazem or propafenone. Have spoken with Dr. Camp, was noted to have a "bloody" thoracentesis. Will plan on restarting anticoagulation tomorrow. Patient with noted with CHADS-VAS score of 3 (female, age, HTN). We will plan for her to follow up in our office, after seen Rheumatology, pending the results , consideration of repeating cardioversion at that time. Consideration of ablation is currently on hold until she has had further workup.. 3. Pericardial effusion: Recent echocardiogram showing no significant change since 10/26. No signs of tamponade. Consider repeating limited echocardiogram for re-evaluation 2-3 weeks as an outpatient. 5. Hypertension: Blood pressure well controlled on current medication regime, no changes at this time. 11/05/17 14:06 Subjective: Denies of any recent chest pressure or pain. Denies of any palpitations, lightheadedness, near-syncope, or syncopal events. Reviewed/Discussed With: hospitalist (Dr Camp), other (Dr Henriquez and Dr Myers) Objective: Vital Signs (8 Hrs) Temp Pulse Resp BP Pulse Ox 11/05/17 10:49 36.4 C 100 14 115/65 97 11/05/17 07:57 37.1 C 102 H 15 112/65 95 Intake/Output (24 Hrs) 11/04/17 11/05/17 11/06/17 05:59 05:59 05:59 Intake Total 880 900 Output Total 350 Balance 530 900 Intake: Oral (ml) 880 900 Output: Urine (ml) 350 Toilet 350 Other: Weight 80.1 kg Number of Voids Toilet 1 2 Result Diagrams: 11/04/17 06:30 11/04/17 04:02 - Physical Exam Constitutional: no apparent distress Ears, Nose, Mouth, Throat: moist mucous membranes Cardiovascular: no murmurs, no rubs, irregularly irregular (A flutter on the monitor.), pulses symmetric bilat, No jugular vein distention, No carotid bruit Peripheral Pulses: 2+: carotid (R), carotid (L), dorsalis-pedis (R), dorsalis- pedis (L) Respiratory: other (Diminished in left lower lobe. No rhonchi, rales, or wheezing noted.) Gastrointestinal: normoactive bowel sounds Skin: no rashes, warm, no edema Neurologic: AAOx3 Psychiatric: cooperative, interactive, following commands ICD10 Worksheet Patient Problems: Problems Problem Status Onset Pleural effusion Acute Pericardial effusion Acute Arrhythmia Acute
[2017-11-05] MEDS: PANTOPRAZOLE SODIUM 40 MG TAB PO SCH (20:41)
[2017-11-05] MEDS: DILTIAZEM CD 180 MG CAP PO SCH (20:41)
--- NOTE | 2017-11-06 08:33 | CPEKG ---
Heart Rate: 87 RR Interval: 690 QRSD Interval: 96 QT Interval: 380 QTC Interval: 457 QRS [place]: 14 T Wave [place]: 49 EKG Severity - ABNORMAL ECG - EKG Impression: ATRIAL FIBRILLATION Electronically Signed By: Juanito Cintron 06-Nov-2017 23:33:25
[2017-11-06] MEDS: PROPAFENONE HCL SR 325 MG CAP PO SCH (08:36)
[2017-11-06] MEDS: oxyCODONE IR 5 MG TAB PO PRN (08:36)
[2017-11-06] MEDS: CHOLECALCIFEROL VIT D3 1,000 UNITS TAB PO SCH (08:37)
[2017-11-06] MEDS: predniSONE 20 MG TAB PO SCH (08:37)
--- NOTE | 2017-11-06 10:33 | PDHOMEO2F ---
Home Oxygen Face to Face Home Orders: I certify that a physician or a nurse practitioner or physician's employment assistant has had a [id number] encounter with this patient on the date of this order due to the diagnosis listed, which relates to the primary reason the patient requires home oxygen. Alternative treatments have been tried, or considered, and deemed ineffective. It is anticipated that supplemental oxygen will result in improvement with treatment. Home oxygen qualifying diagnosis: pleural effusion SpO2 on room air (%): 85 Frequency of home oxygen needed: continuous Home oxygen liters per minute: 2 Home oxygen delivery device: nasal cannula Concentrator: Yes E-tanks for mobility and back up: Yes If ordering portable O2, is the patient mobile in the home?: Yes I certify that, based on these findings, the home oxygen is medically necessary for this patient for the following length of time. Length of time home oxygen needed: 99 years
--- NOTE | 2017-11-06 10:54 | ASMTLACE ---
LACE Length of stay for Answers: 2 days current admission Acuity / Level of Answers: Yes Care: Did the patient have an inpatient admission? # of Emergency department Answers: 1-2 visits in the last 6 months Score: 6 Date Signed: 11/06/2017 10:54 AM Electronically Signed By:WOLF Nicolas
--- NOTE | 2017-11-06 11:02 | GDS ---
[f rep st] DISCHARGE SUMMARY DISCHARGE DIAGNOSES: 1. Pleural effusion. Suspect autoimmune. 2. Pericardial effusion. Suspect autoimmune. 3. Exudative pleural effusion. 4. Atrial fibrillation pending ablation. HISTORY OF PRESENT ILLNESS: The patient is a 67-year-old female who was being evaluated for an ablat ion when she was discovered to have a pericardial effusion. She is now presenting with a pleural eff usion. CT angiogram was negative for PE, pneumonia, or malignancy. She underwent thoracentesis with evidence of exudative effusion. Cytology is pending. Her HANY was found to be very positive with a titer of 1:320 nucleolar pattern. Case was discussed with Rheumatology. Plan is to discharge her on empiric prednisone. Extensive serology sent under the direction Dr. [facility]. She has improved on empiric prednisone and will give her a 10-day c ourse, although anticipate she will follow up with Rheumatology for definitive diagnosis and treatmen t prior to completely coming off the steroid. She is currently rate controlled in her A flutter and ablation can be reconsidered once her other medical issues are resolved. She can resume her Eliquis. She has a continued oxygen requirement at discharge and will be set up for home oxygen. There is s ome residual pleural fluid that hopefully will reabsorb with steroid therapy. DISCHARGE MEDICATIONS: Please see computerized record for full detailed list. New medications: Prednisone 40 mg p.o. daily for 5 days, then 20 mg p.o. daily x5 days. ADDITIONAL DISCHARGE INSTRUCTIONS: 1. Follow up with Rheumatology, Dr. Mccurdy, prior to weaning off the prednisone. 2. Follow up fluid cytology, rule out malignancy. 3. Repeat echocardiogram scheduled November 23 at 10 a.m. at [facility] with followup with Dr. Johanna bundy at 3 p.m. 4. Home oxygen 2 L. Greater than 30 minutes' time were spent arranging this discharge. Patient was seen and examined by me on day of discharge. /[id number]/MODL
--- NOTE | 2017-11-06 11:14 | ASDISCHSUM ---
Discharge Information Plan Status:Home with No Needs Medically Cleared to Leave:11/05/2017 Discharge Date:11/05/2017 CM D/C Disposition:Home, Routine, Self-Care ADT D/C Disposition:Home, Routine, Self-Care Projected Discharge Date:11/05/2017 Transportation at D/C:Family Discharge Delay Reason: Follow-Up Date:11/05/2017 Discharge Slot: Final Diagnosis: Placement Information Patient Contact Information Contact Name:SANTY Relationship: Address:[address] City:[place] Alternate Phone: [facility]/Zip Code:[place] [address] Email: Financial Information Financial Class:Medicare Primary Plan Desc:MEDICARE INPATIENT Primary Plan Number:[id number] Secondary Plan Desc:ORIANA Secondary Plan Number:[id number] Assessment Information LACE LACE Length of stay for Answers: 2 days current admission Acuity / Level of Answers: Yes Care: Did the patient have an inpatient admission? # of Emergency department Answers: 1-2 visits in the last 6 months Score: 6 Date Signed: 11/06/2017 10:54 AM Electronically Signed By:WOLF Nicolas [facility] Initial CM Assessment Living Arrangements What is your living Answers: With Spouse arrangement? Who do you live with? Type Of Residence What kind of residence do Answers: House you live in? Discharge Plan Comments Coordination Status Comments Notes: Pt is a 67 y/o female admitted for pericardial and pleural effusions. Pt will most likely d/c independent when medically stable. No therapies ordered at this time. CM available for changes. Plan: Independent Date Signed: 11/04/2017 11:41 AM Electronically Signed By:ARYAN Park Case Management Discharge Plan Note Case Management Discharge Discharge Order Complete? Answers: Yes Patient to Obtain Answers: via Family Medications Transportation Arranged Answers: Family/Friends Family Notified Answers: Yes Discharge Comments Notes: Pt is discharging home today with no CM needs. IM signed, copy in chart and given to pt. Date Signed: 11/06/2017 11:09 AM Electronically Signed By:WOLF Nicolas Intervention Information
--- NOTE | 2017-11-06 11:36 | PDCARPN ---
Cardiology Progress Note Chief Complaint: Patient reports pain at thoracentesis at insertion site with deep inspiration. Assessment/Plan: Assessment: 67-year-old female significant history that includes paroxysmal atrial fibrillation/atrial flutter, with previous ablation done multiple years ago at [facility], recent recurring episodes of atrial tachycardia, atrial flutter , which has required 2 cardioversion since August 29. She has had a recent CT scan done in preparation for electrophysiology procedure , which noted mild pericardial effusion. Has been monitor with limited echocardiogram done at our office on 10/26 showing a small pericardial effusion which had not noted to be increase in size. Admitted on 11/03 for increased shortness of breath. Found to be in atrial fibrillation. On CT scan showing no PEs which was negative for PE, but noted increased large pleural effusion with atelectasis in left lower lobe. Full echocardiogram study done on 11/03 showing EF low normal between 50-55%, no wall motion abnormality, small pericardial effusion with no evidence of tamponade. Noted large left pleural effusion. Thoracentesis done 2 days ago. Patient reports today pain at thoracentesis site improved since starting on Percocet and prednisone. No worsening shortness of breath. Continues monitor and storage bin tender shows that she maintains atrial flutter, but well rate controlled on current doses of diltiazem and Rythmol. No other malignant arrhythmias noted. Plan: 1. Pleural effusion: Thoracentesis done yesterday. Cytology pending. Positive HANY Started on prednisone, plan on following up with rheumatology. 2. Atrial fibrillation: Patient continues to be in AFib, rate well controlled on current medication regime. Have spoken to Dr. Spencer, patient's honing machine set up operator tool. Per his recommendation, no change in current dosage of diltiazem or propafenone. Have spoken with Dr. Camp, was noted to have a "bloody" thoracentesis. Patient with noted with CHADS-VAS score of 3 (female , age, HTN). Plan on her to resume her Eliquis tonight. We will plan for her to follow up in our office, after seen Rheumatology, pending the results, consideration of repeating cardioversion at that time. Consideration of ablation is currently on hold until she has had further workup.. 3. Pericardial effusion: Recent echocardiogram showing no significant change since 10/26. No signs of tamponade. Patient has been scheduled for repeated echocardiogram to be done in our office on November 23. 4. Hypertension: Blood pressure well controlled on current medication regime, no changes at this time. Patient to be discharged home today. She has follow-up echocardiogram and office visit with Dr. Spencer. 11/06/17 11:31 Subjective: Denies of any chest pressure or pain suggesting of cardiac ischemia. Reports no lightheadedness, palpitations, near-syncope, or syncopal events. Reviewed/Discussed With: hospitalist (Dr Meredith), other (Dr Sadler) Objective: Vital Signs (8 Hrs) Temp Pulse Resp BP Pulse Ox 11/06/17 09:00 86 L 11/06/17 08:00 36.4 C 88 20 99/56 L 98 11/06/17 04:00 36.7 C 83 18 104/55 L 95 Intake/Output (24 Hrs) 11/05/17 11/06/17 11/07/17 05:59 05:59 05:59 Intake Total 900 350 Output Total 200 Balance 900 150 Intake: Oral (ml) 900 350 Output: Urine (ml) 200 Toilet 200 Other: Number of Voids Toilet 2 2 Result Diagrams: 11/04/17 06:30 11/04/17 04:02 - Physical Exam Constitutional: no apparent distress Ears, Nose, Mouth, Throat: moist mucous membranes Cardiovascular: no rubs, systolic murmur (1/6 left sternal border), irregularly irregular (A flutter on the monitor.), pulses symmetric bilat, No jugular vein distention, No carotid bruit Peripheral Pulses: 1+: dorsalis-pedis (R), dorsalis-pedis (L), 2+: carotid (R), carotid (L) Respiratory: other (Diminished in left lower lobe, no rhonchi, rales, or wheezing noted.) Gastrointestinal: normoactive bowel sounds Skin: no rashes, warm, no edema Neurologic: AAOx3 Psychiatric: cooperative, interactive, following commands ICD10 Worksheet Patient Problems: Problems Problem Status Onset Pleural effusion Acute Pericardial effusion Acute Arrhythmia Acute
[2017-11-06 12:14] VITALS: BP 109/58; PULSE 89; RESP 14; TEMP 98.1; O2SAT 98
== END 2017-11-06 12:38 | disposition home or self-care (01) | DRG 187 ==
LOC: OBSVTOIN 12:49 → F2W 13:20
PROVIDERS: ADMIT Internal Medicine; ATTEND Internal Medicine
PROC: 0W9B3ZX Drainage of Left Pleural Cavity, Percutaneous Approach, Diagnostic (ICD-10-PCS; 2017-11-04)
PROC: 0W9B3ZX Drainage of Left Pleural Cavity, Percutaneous Approach, Diagnostic (ICD-10-PCS; principal; 2017-11-05)
DX: J90 Pleural effusion, not elsewhere classified (principal); I31.3 Pericardial effusion (noninflammatory); I48.0 Paroxysmal atrial fibrillation; I10 Essential (primary) hypertension; E78.5 Hyperlipidemia, unspecified; F32.9 Major depressive disorder, single episode, unspecified; Z79.01 Long term (current) use of anticoagulants; Z12.31 Encounter for screening mammogram for malignant neoplasm of breast
CPT/HCPCS: 86225-90; 86235-90; J7512; Q9967

== ENCOUNTER → 2017-11-11 | Outpatient (CLI) | payer OTHER | LOC: BMCIMAGING 14:24 | PROVIDERS: ATTEND Internal Medicine Rheumatology | DX: J90 Pleural effusion, not elsewhere classified (principal) | CPT/HCPCS: 86635-90 ==

== ENCOUNTER → 2017-11-23 | Outpatient (CLI) | payer OTHER | LOC: BHFA 10:00 | PROVIDERS: ATTEND Internal Medicine Cardiovascular Disease | DX: I31.3 Pericardial effusion (noninflammatory) (principal) ==

== ENCOUNTER → 2017-11-26 | Outpatient (CLI) | payer OTHER | LOC: SBRMNEURO 21:00 | PROVIDERS: ATTEND Psychiatry & Neurology Sleep Medicine | DX: G47.33 Obstructive sleep apnea (adult) (pediatric) (principal); G47.31 Primary central sleep apnea ==

== ENCOUNTER → 2017-12-29 | Outpatient (CLI) | payer OTHER | LOC: FIMAGING 09:38 | PROVIDERS: ATTEND Internal Medicine | DX: J90 Pleural effusion, not elsewhere classified (principal); J18.9 Pneumonia, unspecified organism | CPT/HCPCS: 86141-90 ==

== ENCOUNTER → 2018-01-19 | Outpatient (CLI) | payer OTHER | LOC: FIMAGING 12:42 | PROVIDERS: ATTEND Internal Medicine Pulmonary Disease | DX: J90 Pleural effusion, not elsewhere classified (principal); J98.11 Atelectasis ==

== ENCOUNTER → 2018-01-28 | Outpatient (CLI) | payer OTHER ==
[~2018-01-28] MED LIST changes: -IOPAMIDOL (ISOVUE 370) 100 ML BTL IV ONE; +LIDOCAINE 1% 300 MG/30 ML SDV ONE
== END ==
LOC: FIMAGING 07:35
PROVIDERS: ATTEND Internal Medicine Pulmonary Disease
DX: R91.8 Other nonspecific abnormal finding of lung field (principal)

== ENCOUNTER 2018-02-17 10:50 | Emergency (ER) | payer OTHER ==
--- NOTE | 2018-02-17 11:18 | EDPHY ---
General Time Seen by Provider: 02/17/18 11:14 Narrative: CHIEF COMPLAINT: sent from imaging for abnormal MRI, headache HISTORY OF PRESENT ILLNESS: Patient presents with reports of abnormal MRI and headache of the past 4 weeks. Frontal headache over the past 4 weeks. This started gradually and was constant duration. Worse when leaning forward. Improvement holding still. She says that she "didn't quite feel myself," but she and her deny any seizure-like activity or unilateral complaints. No chest pain but does have some chest tightness. She did not strike her head or have any injuries in the past 4 weeks. She did exercise for the 1st time on Wednesday since the last 8 weeks and feels that the chest tightness related to this. No abdominal pain. No nausea or vomiting. No visual disturbance. She was seen by primary care physician with headache, and an MRI resulted today with subacute and acute diffuse subdural hematomas the bilateral cerebral hemispheres, primarily focus on the frontal lobes. She was sent here for higher level of care. No other associated complaints or modifying factors. Last dose of Eliquis was this morning REVIEW OF SYSTEMS: Ten systems reviewed and are negative unless otherwise noted in the HPI PCP: Dr. Rai SPECIALISTS: Dr. Kaz Henriquez and Dr. Spencer PAST MEDICAL HISTORY: Atrial fibrillation, sleep apnea, pericardial effusions, pulmonary effusions PAST SURGICAL HISTORY: No recent surgeries SOCIAL HISTORY: Never smoker. Lives independently with her spouse. Retired FAMILY HISTORY: Noncontributory EXAMINATION General Appearance: Alert, no distress Head: normocephalic, atraumatic Eyes: Pupils equal and round, no conjunctival pallor or injection ENT, Mouth: Mucous membranes moist. Airway widely patent Neck: Normal inspection, supple, non-tender Respiratory: Lungs are clear to auscultation Cardiovascular: Regular rate and rhythm. No murmur. Good signs of perfusion distally Gastrointestinal: Abdomen is soft and nontender Back: non-tender, no bony abnormalities Neurological: GCS 15. A&O, nonfocal, normal gait. Normal mafntm-yv-heuv. No pronator drift. Strength is symmetric in all 4 limbs. Skin: Warm and dry, no rash. No petechiae or purpura Extremities: Nontender, no pedal edema Psychiatric: Mood and affect normal DIFFERENTIAL DIAGNOSES: Including but not limited to subdural hematoma, subacute subdural hematoma, apixaban coagulopathy MDM: 11:20 a.m. Headache of 4 weeks duration with MRI today that shows subacute and acute subdurals bilaterally with some increase attenuation in the frontal lobes. This does correlate clinically with the patient's headaches. However, she is actually feeling better over the past 24 hr and has no complaints of pain at this time. She is awake and alert no acute distress. She is protecting her airway. Her neuro examination is normal. 11:30 a.m. Case discussed with the on-call neurosurgeon Dr. Ba. We discussed the MRI findings and the Eliquis use. She informs me that she has a colleague that she will have come evaluate the patient in the emergency department shortly. No further orders recommendations. We did discuss [facility] for reversal, and Dr. Ba would like to have the patient evaluated prior to ordering this and request that we not ordered at this time. 11:45 a.m. Case discussed with hospitalist Jovita Johnson, DAMASO. She has accepted the patient to the service of Dr. Pan. She requests that we start with an ICU bed request and we could change this after the patient has been evaluated by Neurosurgery if needed 12:20 p.m. Patient has been evaluated by Dr. Crisostomo in the emergency department. He recommends the patient be discharged home. He feels that these are chronic, and the patient is asymptomatic. He would like her to follow up with a distance learning technician regarding her anticoagulation. He would like her to see him in the office in [address] scan of the head for further follow-up. 12:29 p.m. Patient re-evaluated. She still remains completely asymptomatic. She is comfortable with the plan of being discharged home. I discussed follow up with distance learning technician regarding the Eliquis. I discuss following up with Dr. Crisostomo in 2 weeks with a head CT. I discussed returning here for any return of the headache , nausea, vomiting, visual disturbance, unilateral complaints, neck pain or stiffness. She is comfortable this plan and she will be discharged home stable condition. SUPERVISION: Patient was independently examined, but I discussed the case with my secondary supervising physician Dr. Villegas - History Smoking Status: Never smoked - Objective Vital Signs: Initial Vital Signs Temperature (C) 98.2 F 02/17/18 10:55 Heart Rate 93 02/17/18 10:55 Respiratory Rate 17 02/17/18 10:55 Blood Pressure 135/59 H 02/17/18 10:55 O2 Sat (%) 97 02/17/18 10:55 O2 Delivery Mode Room Air Allergies/Adverse Reactions: NSAIDS (Non-Steroidal Anti-Inflamma Allergy (Verified 02/17/18 10:53) GI Bleeding Home Medications: Medication Instructions Recorded Apixaban [Eliquis] 5 mg PO BID 10/12/17 Diltiazem HCl [Cartia XT 180mg] 180 mg PO HS 10/21/17 Propafenone HCl Sr [Rythmol Sr 325 mg PO BID 11/03/17 325mg (*)] Laboratory Results: Laboratory Results 02/17/18 11:35 02/17/18 11:35 Departure - Departure Disposition: Home, Routine, Self-Care Clinical Impression: Subdural hematoma, chronic Condition: Good Instructions: Subdural Hematoma (ED) Additional Instructions: 1. Contact your distance learning technician to discuss your further Eliquis use 2. Contact Dr. Crisostomo's office for outpatient follow-up and scheduled a follow- up CT scan of the head 3. Return to the emergency department for return of headache, nausea, vomiting, visual disturbance, unilateral complaint, fever, neck pain or stiffness Referrals: Antoinette Rai MD [Primary Care Provider] - As per Instructions Robin Crisostomo MD [Medical Doctor] - As per Instructions Hugo Henriquez MD [Medical Doctor] - As per Instructions
[2018-02-17 11:44] LABS: PLATELET COUNT 343 10^3/uL (150-400)
--- NOTE | 2018-02-17 11:45 | CPEKG ---
Heart Rate: 78 RR Interval: 769 P-R Interval: 180 QRSD Interval: 92 QT Interval: 376 QTC Interval: 429 P [place]: 60 QRS [place]: 2 T Wave [place]: 31 EKG Severity - BORDERLINE ECG - EKG Impression: SINUS RHYTHM EKG Impression: PROBABLE LEFT ATRIAL ABNORMALITY Electronically Signed By: Khushbu Villegas 17-Feb-2018 15:14:25
[2018-02-17 12:06] LABS: INR 1.56 (0.83-1.16); PROTIME(PATIENT) 18.8 SEC (12.0-15.0)
[2018-02-17 12:56] VITALS: BP 116/67
--- NOTE | 2018-02-17 13:58 | GHP ---
[f rep st] HISTORY AND PHYSICAL DATE OF ADMISSION: 02/17/2018 CHIEF COMPLAINT: History of headaches in relation to findings of chronic subdural hematomas rashid garsia. HISTORY OF PRESENT ILLNESS: This is a 67-year-old female who has been having some headaches over the last 4 weeks. This started gradually and was of constant duration. The patient states that she als o just did not quite feel like herself. She was then seen by her primary care physician, who ordered an MRI of the brain, which she did get earlier this morning. This showed evidence of bilateral smal l subacute versus chronic subdural hematomas in the bilateral hemispheres without any mass effect or midline shift. The patient is also on Eliquis for history of atrial fibrillation. The patient denies any falls or any other inciting events. The patient currently denies any symptoms and does not have a headache today. The patient states that she feels otherwise fine; has no numbne ss, tingling, pain in her arms and legs. She denies any slurred speech. She denies any headaches. She denies any vision changes, vomiting, dizziness, or lightheadedness. REVIEW OF SYSTEMS: All pertinent positive and negative review of systems are as stated in the HPI. PAST MEDICAL HISTORY: Includes atrial fibrillation, sleep apnea, pericardial effusions, and pulmonar y effusions. PAST SURGICAL HISTORY: Reviewed. Has no recent surgeries. SOCIAL HISTORY: Patient denies any tobacco use or smoking history. She lives with her , who is at her bedside. They are currently retired. FAMILY HISTORY: Reviewed and is noncontributory to this admission. CURRENT HOME MEDICATIONS: Include Eliquis 5 mg p.o. twice daily, diltiazem 180 mg p.o. at bedtime, p ropafenone 325 mg p.o. twice daily. ALLERGIES: Patient is allergic to NSAIDs. OBJECTIVE: VITAL SIGNS: Blood pressure 116/67, heart rate 83, respiratory rate 16, O2 SAT 96% on ro om air, temperature 36.7. CONSTITUTIONAL: Patient is alert and oriented x4, in no acute distress. She is a well-developed, well-nourished female. HEENT: Head is normocephalic, atraumatic. Eyes: P upils are equal and reactive to light and accommodation. Extraocular muscles are intact. NECK: Non tender to palpation and has full range of motion. RESPIRATORY: Normal work of breathing. ABDOMEN: There is no guarding. NEUROLOGIC: Cranial nerves 2-12 are grossly intact. Tongue protrusion is mi dline. Palate rises symmetrically. Accessory muscles are 5/5 and equal in strength. Face is symmet rical. Her speech is fluent. Gross motor exam: Bilateral upper extremities are 5/[address] rength in all muscle groups including deltoids, biceps, triceps, wrist extensors, flexors, interossei and community health program coordinator. Bilateral lower extremities are 5/5 and equal in strength in quadriceps, hamstrings, dors iflexion, plantar flexion, EHL. Sensation is intact over the nerve dermatomal distribution of the monty dy. EXTREMITIES: No cyanosis or edema noted. Deep tendon reflexes are 2+ bilaterally in the patell a, biceps, brachioradialis, and Achilles. LABORATORY DATA: White blood cell count 8.22, red blood cell count 4.49, hemoglobin 11.8, hematocrit 36.6, platelets 343. Coags: PT 18.8, INR 1.56, APTT 41.6. Sodium 141, potassium 4.1, chloride 105 , carbon dioxide 24, anion gap 12, BUN 17, creatinine 0.8, estimated GFR greater than 60, glucose 102 , calcium 9.3. Troponin less than 0.012. DIAGNOSTIC IMAGING: Brain MRI was reviewed and shows: 1. Bilateral diffuse mixed acute and subacute subdural hematoma throughout bilateral cerebral hemisp heres, slightly more prominent in bilateral frontal lobes. 2. There was no acute infarct, hydrocephalus, or herniation. 3. Several nonspecific hyperintense T2 FLAIR signal abnormalities in the white matter of the bilater al cerebral hemispheres. Differential diagnosis includes moderate microvascular ischemic gliosis paulette rosa less likely postinfectious or postinflammatory clot. ASSESSMENT AND PLAN: This is a 67-year-old female who has had a history of headaches for the last 4 weeks. She was then seen by her primary care provider who ordered an MRI of the brain. That was obt ained this morning and showed very small bilateral frontal subacute to chronic subdural hematomas pk suring about 3 mm in size and are noncompressive and are noncontributing to any midline shift or any brain compression. Currently the patient has no neurologic deficits and is asymptomatic and does not have any headaches currently. We spoke with her about the nature of these subdurals, and it is unclear what caused these; but, in r egard to her blood thinning medications, we request that she follow up with her conveyor technician in appro ximately 1 week and discussion on whether or not she needs to continue on this medication. Neurosurg bree is fine either way. Currently, her heart rate is under control. She is not currently in atrial fibrillation, so it is possible that she may be able to be taken off this medication at some point in the future. She currently is asymptomatic, and these subdural fluid collections are not compressive or causing an y sort of midline shift. Therefore, there is no other neurosurgical intervention that is needed. We would like to see her back in our office in approximately 2-3 weeks with a repeat CT scan to make sure that these are continuing to resolve. We did warn her about any return of the ER symptoms such as increasing headaches, excessive nausea, vomiting, any weakness in her extremities, any new numbnes s, tingling or pain in her arms and legs. She should return to the ER or give our office a call at . She was seen and staffed by Neurosurgical Services at approximately 12:15 p.m. by myself and Dr. Mary Kay Crisostomo. At this point, she may be discharged to go home. There are no further scans at this time; but, if she should have any new or worsening symptoms, she is to return to the ER, and we will repea t her scan in approximately 2 weeks. She will follow up with her conveyor technician in 1 week regarding an y continuation of Eliquis, but she may remain on at this time. If any questions or concerns, please contact Neurosurgery. This was also relayed to the emergency room doctor who was taking care of her today. The patient agr ees and understands the plan. /[id number]/MODL
== END 2018-02-17 12:57 | disposition home or self-care (01) ==
LOC: UNDOADMIN 11:47
DX: I62.03 Nontraumatic chronic subdural hemorrhage (principal)

== ENCOUNTER → 2018-03-03 | Outpatient (CLI) | payer OTHER | LOC: FIMAGING 13:46 | PROVIDERS: ATTEND Physician Assistant | DX: S06.5X0A Traumatic subdural hemorrhage without loss of consciousness, initial encounter (principal); G93.89 Other specified disorders of brain ==

== ENCOUNTER → 2018-03-31 | Outpatient (CLI) | payer OTHER | LOC: FIMAGING 08:58 | PROVIDERS: ATTEND Internal Medicine Pulmonary Disease | DX: J90 Pleural effusion, not elsewhere classified (principal); I25.10 Atherosclerotic heart disease of native coronary artery without angina pectoris ==

== ENCOUNTER → 2018-06-16 | Outpatient (CLI) | payer OTHER | LOC: FIMAGING 07:45 | PROVIDERS: ATTEND Neurological Surgery | DX: S06.5X0D Traumatic subdural hemorrhage without loss of consciousness, subsequent encounter (principal) ==

== ENCOUNTER → 2018-09-09 | Outpatient (CLI) | payer OTHER | LOC: BHFA 11:30 | PROVIDERS: ATTEND Internal Medicine Cardiovascular Disease | DX: I48.91 Unspecified atrial fibrillation (principal) ==

== ENCOUNTER → 2018-09-15 | Outpatient (CLI) | payer OTHER | LOC: BHFA 13:45 | PROVIDERS: ATTEND Internal Medicine Cardiovascular Disease | DX: I48.0 Paroxysmal atrial fibrillation (principal); I25.10 Atherosclerotic heart disease of native coronary artery without angina pectoris ==

== ENCOUNTER 2018-12-02 08:40 | Day surgery (SDC) | payer OTHER ==
[2018-12-02] MEDS ORDERED: BENZOCAINE UNIT DOSE SPRAY HURRICAINE MM ONE (08:49)
[2018-12-02] MEDS ORDERED: NS 500 ML IV ONE (08:49)
[2018-12-02] MEDS ORDERED: MIDAZOLAM 2 MG/2 ML VIAL IVP ONE (08:49)
[2018-12-02] MEDS ORDERED: fentaNYL 100 MCG/2 ML INJ IVP ONE (08:49)
[2018-12-02] MEDS ORDERED: NS 1,000 ML IV ONE (08:56)
[2018-12-02] MEDS ORDERED: FAMOTIDINE 20 MG TAB PO ONE (08:56)
[2018-12-02] MEDS ORDERED: ASPIRIN EC 325 MG TAB PO ONE (08:56)
[2018-12-02] MEDS ORDERED: diphenhydrAMINE 25 MG CAP PO ONE (08:56)
[2018-12-02] MEDS ORDERED: DIAZEPAM 5 MG TAB PO ONE (08:56)
[2018-12-02] MEDS ORDERED: MIDAZOLAM 2 MG/2 ML VIAL ONE (09:28)
[2018-12-02] MEDS ORDERED: fentaNYL 100 MCG/2 ML INJ ONE (09:30)
--- NOTE | 2018-12-02 09:39 | PDPROPOC ---
Sedation Plan of Care Sedation Plan of Care: vital signs stable, mental status noted, patient educated of risks, benefits, alternatives, patient can tolerate sedation ASA Classification: ASA 1 Planned drugs: fentanyl, midazolam Mallampati Score: Class 1 Mallampati Reference Image: Patient passed 3-3-2 rule?: Yes
[2018-12-02 11:48] VITALS: BP 136/65
--- NOTE | 2018-12-02 13:51 | ECHO ---
[email or web address] [address] [address] Main: [phone] Echocardiography Examination Transesophageal Name: AIDA BARRETT MR#: [id number] Study Date: 12/02/2018 Study Time: 09:36 AM Date of : 1950 Age: 68 year(s) Height: ( ) Weight: ( ) BSA: Gender: Female Examination: AUBREY Contrast: Image Quality: Good Rhythm: Heart Rate: BP: / Indication: Eval Mitral Valve Procedure Staff Referring Physician: Make Up Operator Helper: Tremayne Black RDCS Reading Physician: Hugo Henriquez MD Requesting Provider: Ordering Physician: Analilia Reynolds MD Indication: Eval Mitral Valve Acute complication: None Conclusions Overall Conclusions: No pericardial effusion. Mild mitral regurgitation. Mild tricuspid regurgitation. Left atrial enlargement. Preserved left ventricular systolic function. No thrombus within the left atrial appendage. Measurements as seen below. Findings Left Ventricle: Left ventricle is normal in size. Normal global systolic left ventricular function. The EF is visually estimated to be 65 %. Right Ventricle: Right ventricular systolic function is normal. Left Atrium: WILLIAM 45 degrees 1.7 cm x .1.4cm, 90 degrees 1.7 cm x 1.1cm, 135 degrees, 2.1cm x 1.8cm. Mitral Valve: Mitral valve appears structurally normal. Mild mitral regurgitation. No mitral valve stenosis. Aortic Valve: No aortic valve regurgitation. There is no aortic stenosis. The aortic valve is trileaflet. Tricuspid Valve: Tricuspid valve leaflets are normal in appearance and function. No tricuspid regurgitation. Pulmonic Valve: Pulmonic leaflets are normal in appearance and function. Patient: AIDA BARRETT Study Date: 12/02/2018 Page 1 of 2 09:36 AM Pericardium: No pericardial effusion. Exam Details Procedure Ordered: AUBREY Procedure Status: Routine study Image Quality: Good Consent: Risks, alternatives of procedure explained to patient, informed consent obtained Probe Insertion: Attending locomotive engineer diesel Facility Location: Cardiac Echo 1 (No Signature Object) Patient: AIDA BARRETT Study Date: 12/02/2018 Page 2 of 2 09:36 AM [id number]
== END 2018-12-02 11:48 | disposition home or self-care (01) ==
LOC: FCATH 08:40
PROVIDERS: ATTEND Internal Medicine Interventional Cardiology
PROC: B246ZZ4 Ultrasonography of Right and Left Heart, Transesophageal (ICD-10-PCS; principal; 2018-12-02)
DX: I34.0 Nonrheumatic mitral (valve) insufficiency (principal); I36.1 Nonrheumatic tricuspid (valve) insufficiency; Q21.1 Atrial septal defect; I48.0 Paroxysmal atrial fibrillation; I25.10 Atherosclerotic heart disease of native coronary artery without angina pectoris; I10 Essential (primary) hypertension; G47.33 Obstructive sleep apnea (adult) (pediatric); Z87.820 Personal history of traumatic brain injury
CPT/HCPCS: J2250; J3010

== ENCOUNTER 2019-01-24 08:30 | Day surgery (SDC) | payer OTHER ==
[2019-01-24] MEDS ORDERED: ASPIRIN EC 325 MG TAB PO ONE (08:33)
[2019-01-24] MEDS ORDERED: NS 1,000 ML IV ONE (08:33)
[2019-01-24] MEDS ORDERED: diphenhydrAMINE 25 MG CAP PO ONE (08:33)
[2019-01-24] MEDS ORDERED: FAMOTIDINE 20 MG TAB PO ONE (08:33)
[2019-01-24] MEDS ORDERED: DIAZEPAM 5 MG TAB PO ONE (08:33)
[2019-01-24 09:12] LABS: PLATELET COUNT 287 10^3/uL (150-400)
[2019-01-24 09:27] LABS: INR 1.18 (0.83-1.16); PROTIME(PATIENT) 14.5 SEC (12.0-15.0)
[2019-01-24] MEDS ORDERED: VERAPAMIL 5 MG/2 ML VIAL ONE (09:40)
[2019-01-24] MEDS ORDERED: MIDAZOLAM 2 MG/2 ML VIAL ONE (09:40)
[2019-01-24] MEDS ORDERED: fentaNYL 100 MCG/2 ML INJ ONE (09:40)
[2019-01-24] MEDS ORDERED: LIDOCAINE 1% 300 MG/30 ML SDV ONE (09:40)
[2019-01-24] MEDS ORDERED: HEPARIN 10,000 UNIT/10 ML MDV (1,000 UNIT/ML) ONE (09:41)
[2019-01-24] MEDS ORDERED: IOPAMIDOL (ISOVUE 370) 100 ML BTL IV ONE (09:42)
--- NOTE | 2019-01-24 10:40 | PDGENHP ---
History & Physical Chief Complaint: Preoperative assessment History of Present Illness: 68-year-old female here for cardiac catheterization in preparation for open closure of the left atrial appendage and open AFib ablation. Pertinent Past, Social, Family History: History of paroxysmal atrial fibrillation, history of intracranial bleeding, history of [id number] mitral regurgitation Relevant Physical Exam: 110/70. Regular rhythm. Lungs are clear. Abdomen soft. Extremities free of edema. Radial pulses +2 and equal. Facial symmetry Cardiorespiratory Assessment: Preop assessment for open-heart surgery.
--- NOTE | 2019-01-26 16:21 | PDDXCAT ---
Diagnostic Cath Note - . Date: 01/26/19 Granulator Tender: Martinez Indication: other (Preop assessment left atrial appendage closure/pulmonary vein isolation) - Procedure Access: right wrist Procedure: left heart catheterization, coronary angiography, left ventriculogram - Materials Left Heart Cath size: 4F Left Heart Cath materials: standard multipack (JL4, JR4, pigtail) - Findings-Left Heart Catheterization LM: normal LAD: Normal LCX: Normal RCA: Normal EDP: 12 mm of mercury LVEF: 65 Wall motion: Normal Complications: None Estimated blood loss: <50ml Closure method: TR Band Assessment: Normal coronary arteries. Normal LV systolic function Patient Problems: Problems Problem Status Onset Pleural effusion Acute Pericardial effusion Acute Arrhythmia Acute
== END 2019-01-24 14:26 | disposition home or self-care (01) ==
LOC: FCATH 08:30
PROVIDERS: ATTEND Internal Medicine Interventional Cardiology
DX: Z01.810 Encounter for preprocedural cardiovascular examination (principal); I48.0 Paroxysmal atrial fibrillation; I34.0 Nonrheumatic mitral (valve) insufficiency; Z86.79 Personal history of other diseases of the circulatory system
CPT/HCPCS: 93458; C1769; J1644; J2250; J3010; Q9967

== ENCOUNTER 2019-02-10 05:46 | Inpatient (IN) | payer OTHER | END 2019-02-13 15:07 | disposition home or self-care (01) | LOC: F2W 05:46 → F2N 15:21 → F2W 02-11 15:20 → F2N 16:10 ==

== ENCOUNTER → 2019-02-23 | Outpatient (CLI) | payer OTHER | LOC: FIMAGING 10:00 ==